=== PATIENT | male | born 1940 | race Caucasian/White ===

== ENCOUNTER 2017-12-20 13:25 | Inpatient (IN) | payer OTHER ==
[~2017-12-20] VITALS: Ht 175.3 cm; Wt 69.6 kg
[2017-12-20 13:53] VITALS: Ht 175.3 cm; Wt 69.6 kg
[2017-12-20 17:50] LABS: BASOPHIL % 0.5 % (0-2); PLATELET COUNT 282 x10^3mcL (130-400)
[2017-12-20 17:57] LABS: RED CELL DISTRIBUTION WIDTH 15.1 % (11.5-14.5)
[2017-12-20] MEDS ORDERED: STRATTERA80 MG PO (17:57)
[2017-12-20] MEDS ORDERED: PROPANOLOL (17:58)
[2017-12-20] MEDS ORDERED: PANTOPRAZOLE SO40 M1 PO (17:58)
[2017-12-20] MEDS ORDERED: MYS50 PO (17:59)
[2017-12-20] MEDS ORDERED: LIPITOR40 MG PO (17:59)
[2017-12-20] MEDS ORDERED: RANITIDINE HCL150 M1 PO (18:00)
[2017-12-20] MEDS ORDERED: LORAZEPAM0.5 MG PO (18:02)
[2017-12-20] MEDS ORDERED: MONTELUKAST SOD10 M1 PO (18:03)
[2017-12-20] MEDS ORDERED: SLEEP AID (18:04)
[2017-12-20] MEDS ORDERED: ARTIFICIAL TEARS (18:05)
[2017-12-20] MEDS ORDERED: VITAMIN C (18:06)
[2017-12-20] MEDS ORDERED: PROVENTIL0.09 MG/A1 (18:08)
[2017-12-20 18:21] LABS: CALCIUM 9.1 mg/dL (8.5-10.1); CARBON DIOXIDE 29.6 mmol/L (21-32); CHLORIDE SERUM 102 mmol/L (98-107); CREATININE SERUM 0.7 mg/dL (0.7-1.3); GLUCOSE SERUM 106 mg/dL (74-106); POTASSIUM SERUM 3.9 mmol/L (3.5-5.1); SODIUM SERUM 136 mmol/L (136-145)
[2017-12-20 18:25] LABS: ALKALINE PHOSPHATASE 99 U/L (46-116); ALT/SGPT 35 U/L (16-63); AST/SGOT 20 U/L (15-37); BILIRUBIN TOTAL 0.8 mg/dL (0.20-1.00)
[2017-12-20 18:28] LABS: MAGNESIUM 2.7 mg/dL (1.8-2.4); PHOSPHOROUS 2.7 mg/dL (2.5-4.9)
[2017-12-20 18:29] LABS: CHOLESTEROL/HDL RATIO 2.7
[2017-12-20 18:35] LABS: FREE T4 1.23 ng/dL (0.76-1.46); FREE THYROXINE INDEX 3.4 ug/dL (1.4-4.5); T4(THYROXINE) 9.2 ug/dL (4.7-13.3)
[2017-12-20 19:13] VITALS: BP 156/86
[2017-12-20 20:47] VITALS: BP 138/71
[2017-12-20 21:04] LABS: microscopic required? NO
[2017-12-20 21:27] LABS: urine erythrocyte NEGATIVE (NEGATIVE)
[2017-12-20 22:14] VITALS: BP 138/71
[2017-12-21] LABS: T3 TOTAL 1.1 ng/mL
[2017-12-21 05:21] VITALS: BP 140/68
[2017-12-21 06:19] LABS: PLATELET COUNT 248 x10^3mcL (130-400); RED CELL DISTRIBUTION WIDTH 14.5 % (11.5-14.5)
[2017-12-21 06:35] LABS: CALCIUM 8.7 mg/dL (8.5-10.1); CARBON DIOXIDE 28.3 mmol/L (21-32); CHLORIDE SERUM 102 mmol/L (98-107); CREATININE SERUM 0.8 mg/dL (0.7-1.3); GLUCOSE SERUM 99 mg/dL (74-106); MAGNESIUM 2.6 mg/dL (1.8-2.4); PHOSPHOROUS 3.1 mg/dL (2.5-4.9); POTASSIUM SERUM 4.3 mmol/L (3.5-5.1); SODIUM SERUM 138 mmol/L (136-145)
[2017-12-21 10:01] VITALS: BP 144/76
[2017-12-21] MEDS ORDERED: COLACE100 MG PO (14:16)
[2017-12-21] MEDS ORDERED: METP PO (14:26)
[2017-12-21 17:57] VITALS: BP 132/71
[2017-12-21 20:41] VITALS: BP 146/74
[2017-12-22 05:36] VITALS: BP 138/67
[2017-12-22 06:53] LABS: BASOPHIL % 0.2 % (0-2); PLATELET COUNT 229 x10^3mcL (130-400)
[2017-12-22 07:03] LABS: RED CELL DISTRIBUTION WIDTH 14.6 % (11.5-14.5)
[2017-12-22 07:07] LABS: CALCIUM 8.8 mg/dL (8.5-10.1); CARBON DIOXIDE 32.1 mmol/L (21-32); CHLORIDE SERUM 105 mmol/L (98-107); CREATININE SERUM 0.7 mg/dL (0.7-1.3); GLUCOSE SERUM 107 mg/dL (74-106); POTASSIUM SERUM 4.1 mmol/L (3.5-5.1); SODIUM SERUM 141 mmol/L (136-145)
[2017-12-22 10:17] VITALS: BP 136/68
[2017-12-22 10:52] VITALS: BP 136/68
== END 2017-12-22 13:38 | disposition home or self-care (01) | DRG 392 ==
LOC: ED 13:25 → MU 17:48
PROVIDERS: Emergency Medicine; Family Medicine; Internal Medicine
DX: K59.09 Other constipation (principal); I16.0 Hypertensive urgency; J45.909 Unspecified asthma, uncomplicated; G25.0 Essential tremor; E78.5 Hyperlipidemia, unspecified; Z68.23 Body mass index [BMI] 23.0-23.9, adult
CPT/HCPCS: 83880; 84439; J3535; J7620; Q0092

== ENCOUNTER 2019-04-28 17:31 | Emergency (ER) | payer OTHER ==
[~2019-04-28] VITALS: Ht 172.7 cm; Wt 71.2 kg
[~2019-04-28 17:31] MED LIST: ARTIFICIAL TEARS; COLACE100 MG PO; LIPITOR40 MG PO; LORAZEPAM0.5 MG PO; METP PO; MONTELUKAST SOD10 M1 PO; MYS50 PO; PANTOPRAZOLE SO40 M1 PO; PROPANOLOL; PROVENTIL0.09 MG/A1; RANITIDINE HCL150 M1 PO; SLEEP AID; STRATTERA80 MG PO; VITAMIN C
[2019-04-28 17:36] VITALS: Ht 172.7 cm; Wt 71.2 kg
[2019-04-28 19:30] LABS: BASOPHIL % 0.2 % (0-2); PLATELET COUNT 267 x10^3mcL (130-400); RED CELL DISTRIBUTION WIDTH 14.1 % (11.5-14.5)
[2019-04-28 20:40] LABS: CALCIUM 9.6 mg/dL (8.5-10.1); CARBON DIOXIDE 29.1 mmol/L (21-32); CHLORIDE SERUM 106 mmol/L (98-107); CREATININE SERUM 0.8 mg/dL (0.7-1.3); GLUCOSE SERUM 103 mg/dL (74-106); POTASSIUM SERUM 4.3 mmol/L (3.5-5.1); SODIUM SERUM 145 mmol/L (136-145)
[2019-04-28 20:45] LABS: ALBUMIN 3.9 g/dL (3.4-5.0); ALKALINE PHOSPHATASE 104 U/L (46-116); ALT/SGPT 34 U/L (16-63); AST/SGOT 17 U/L (15-37); BILIRUBIN TOTAL 0.4 mg/dL (0.20-1.00); TOTAL PROTEIN, SERUM 7.7 g/dL (6.4-8.2)
[2019-04-28 22:12] VITALS: BP 155/87
== END 2019-04-28 22:12 | disposition home or self-care (01) ==
LOC: ED 17:31
PROVIDERS: Emergency Medicine
DX: R07.89 Other chest pain (principal); K21.9 Gastro-esophageal reflux disease without esophagitis; J45.909 Unspecified asthma, uncomplicated; I10 Essential (primary) hypertension; E78.00 Pure hypercholesterolemia, unspecified; Z88.8 Allergy status to other drugs, medicaments and biological substances
CPT/HCPCS: 36415